=== PATIENT | female | born 1960 | race Caucasian/White ===

== ENCOUNTER → 2016-10-29 | Outpatient (CLI) | payer OTHER ==
[2016-10-29 17:25] LABS: ABSOLUTE EOSINOPHILS # (AUTO) 0.1 10^3/uL (0.0-0.6); ABSOLUTE LYMPHOCYTES (AUTO) 1.8 10^3/uL (0.5-4.7); ABSOLUTE NEUT (AUTO) 7.3 10^3/uL (1.7-8.2); BASOPHILS % (AUTO) 0.2 % (0-2); EOSINOPHILS % (AUTO) 0.8 % (0-6); HEMATOCRIT 44.8 % (36.0-47.0); HEMOGLOBIN 14.6 g/dL (12.0-15.5); LYMPHOCYTES % (AUTO) 17.2 % (13-45); MEAN CORPUSCULAR HGB CONC 32.6 g/dL (32.0-36.0); MEAN CORPUSCULAR VOLUME 95 fl (80-97); RED BLOOD COUNT 4.72 10^6/uL (3.72-5.28); RED CELL DISTRIBUTION WIDTH 14.2 % (11.5-14.0); SEGMENTED NEUTROPHILS % (AUTO) 71.8 % (42-78); WHITE BLOOD COUNT 10.2 10^3/uL (4.0-10.5)
== END ==
LOC: OD 15:47
PROVIDERS: ATTEND Specialist
DX: K51.80 Other ulcerative colitis without complications (principal)
CPT/HCPCS: 36415; 85025; 86140; 87045; 87205; 87493

== ENCOUNTER 2017-10-27 12:11 | Inpatient (IN) | payer OTHER ==
--- NOTE | 2017-10-27 13:54 | RADIOLOGY REPORT (SQ) ---
EXAM DESCRIPTION: CHEST PA/LAT COMPLETED DATE/TIME: 10/27/2017 1:29 pm REASON FOR STUDY: cough COMPARISON: 02/10/2015 EXAM PARAMETERS: NUMBER OF VIEWS: two views TECHNIQUE: Digital Frontal and Lateral radiographic views of the chest acquired. RADIATION DOSE: NA LIMITATIONS: none FINDINGS: LUNGS AND PLEURA: No opacities, masses or pneumothorax. No pleural effusion. MEDIASTINUM AND HILAR STRUCTURES: No masses or contour abnormalities. HEART AND VASCULAR STRUCTURES: Heart normal size. No evidence for failure. BONES: No acute findings. HARDWARE: None in the chest. OTHER: No other significant finding. IMPRESSION: NO SIGNIFICANT RADIOGRAPHIC FINDING IN THE CHEST. TECHNICAL DOCUMENTATION: JOB ID: [id number] [employer]- All Rights Reserved
[2017-10-27 14:20] LABS: HEMATOCRIT 41.8 % (36.0-47.0); HEMOGLOBIN 13.8 g/dL (12.0-15.5); MEAN CORPUSCULAR HEMOGLOBIN 31.1 pg (27.0-33.4); MEAN CORPUSCULAR VOLUME 94 fl (80-97); PLATELET COUNT 162 10^3/uL (150-450); RED BLOOD COUNT 4.44 10^6/uL (3.72-5.28); RED CELL DISTRIBUTION WIDTH 13.4 % (11.5-14.0); WHITE BLOOD COUNT 12.4 10^3/uL (4.0-10.5)
[2017-10-27 14:28] LABS: APPEARANCE,URINE TURBID; BILIRUBIN,URINE NEGATIVE (NEGATIVE); GLUCOSE, URINE NEGATIVE (NEGATIVE); KETONES,URINE 20 mg/dL (NEGATIVE); LEUKOCYTE ESTERASE,URINE MODERATE (NEGATIVE); NITRITE,URINE POSITIVE (NEGATIVE); PROTEIN,URINE 100 mg/dL (NEGATIVE); UROBILINOGEN,URINE NEGATIVE mg/dL (<2.0)
[2017-10-27 14:31] LABS: COLOR,URINE YELLOW
[2017-10-27 14:43] LABS: ALANINE AMINOTRANSFERASE 61 U/L (9-52); ALBUMIN 3.6 g/dL (3.5-5.0); ALKALINE PHOSPHATASE 76 U/L (38-126); ANION GAP 12 (5-19); ASPARTATE AMINO TRANSFERASE 64 U/L (14-36); BILIRUBIN,DIRECT 0.5 mg/dL (0.0-0.4); BILIRUBIN,TOTAL 0.8 mg/dL (0.2-1.3); BLOOD UREA NITROGEN 27 mg/dL (7-20); CALCIUM 8.9 mg/dL (8.4-10.2); CARBON DIOXIDE 26 mmol/L (22-30); CHLORIDE 99 mmol/L (98-107); GLUCOSE 137 mg/dL (75-110); POTASSIUM 3.9 mmol/L (3.6-5.0); SODIUM 137.1 mmol/L (137-145); TOTAL PROTEIN 6.4 g/dL (6.3-8.2)
[2017-10-27 14:46] LABS: ABSOLUTE NEUTROPHILS# (MANUAL) 11.4 10^3/uL (1.7-8.2); BASOPHILS % (MANUAL) 0 % (0-2); EOSINOPHILS % (MANUAL) 0 % (0-6); LYMPHOCYTES % (MANUAL) 0 % (13-45); MONOCYTES % (MANUAL) 8 % (3-13); SEGMENTED NEUTROPHILS % (MAN) 92 % (42-78); TOTAL CELLS COUNTED 100
[2017-10-27 14:48] LABS: PLATELET COMMENT ADEQUATE; RBC MORPHOLOGY COMMENT NORMO-CYTIC/CHROMIC; TOXIC GRANULATION SLIGHT
[2017-10-27] MEDS ORDERED: CEFTRIAXONE 1 GM/D5W RTU 1 GM/50 ML RTUPB IV ONE (15:25)
[2017-10-27] MEDS ORDERED: CEFTRIAXONE SODIUM 1,000 MG in NORMAL SALINE 50 ML IV ONE (18:00)
[2017-10-27] MEDS ORDERED: NORMAL SALINE 1000 ML 1,000 ML IV ONE (20:09)
--- NOTE | 2017-10-27 20:16 | ER Document Report ---
ED Flu Like - General Chief Complaint: Flu Symptoms Stated Complaint: FLU SYMPTOMS Time Seen by Provider: 10/27/17 12:49 Mode of Arrival: Ambulatory Information source: Patient Notes: Patient arrives complains of feeling very weak and fatigued. She has had a mild cough. Some nausea and vomiting. She also states that she is unable to tolerate any significant p.o. intake. She has no appetite. The symptoms are severe. Nothing makes them better or worse. They are constant. She states she is on Humira. She states recently she had a urinary tract infection about 3 months ago and the only way it could be cured was to stop her Humira. No known radiation of the symptoms. TRAVEL OUTSIDE OF THE [place] IN LAST 30 DAYS: No - Related Data Allergies/Adverse Reactions: No Known Allergies Allergy (Verified 05/30/16 08:00) Past Medical History - General Information source: Patient - Social History Smoking Status: Unknown if Ever Smoked Frequency of alcohol use: None Drug Abuse: None Family History: Reviewed & Not Pertinent Patient has suicidal ideation: No Patient has homicidal ideation: No - Past Medical History Cardiac Medical History: Reports: Hx Hypertension - meds x 15 years Denies: Hx Atrial Fibrillation, Hx Congestive Heart Failure, Hx Coronary Artery Disease, Hx Heart Attack, Hx Hypercholesterolemia, Hx Peripheral Vascular Disease, Hx Pulmonary Embolism, Hx Heart Murmur Pulmonary Medical History: Reports: Hx Sleep Apnea - sleep study approx 3 years ago,"borderline" denies CPAP requirement Denies: Hx Asthma, Hx Bronchitis, Hx COPD, Hx Pneumonia, Hx Respiratory Failure, Hx Tuberculosis Neurological Medical History: Denies: Hx Cerebrovascular Accident, Hx Seizures Renal/ Medical History: Reports: Hx Ovarian Cysts. Denies: Hx Peritoneal Dialysis, Hx Pelvic Inflammatory Disease Malignancy Medical History: Denies: Hx Breast Cancer, Hx Cervical Cancer, Hx Leukemia, Hx Lung Cancer, Hx Ovarian Cancer GI Medical History: Reports: Hx Gastroesophageal Reflux Disease - Zantac PRN. Denies: Hx Crohn's Disease, Hx Hiatal Hernia, Hx Irritable Bowel, Hx Liver Failure, Hx Pancreatitis, Hx Ulcer Musculoskeltal Medical History: Reports Hx Arthritis - REITERS SYNDROME, Denies Hx Fibromyalgia, Denies Hx Muscular Dystrophy Traumatic Medical History: Reports: Hx Fractures - RT clavicle as infant Infectious Medical History: Denies: Hx HIV Past Surgical History: Reports: Hx Tonsillectomy - @ age 53 years old. Denies: Hx Appendectomy, Hx Bowel Surgery, Hx Section, Hx Cholecystectomy, Hx Colostomy, Hx Coronary Artery Bypass Graft, Hx Gastric Bypass Surgery, Hx Herniorrhaphy, Hx Hysterectomy, Hx Mastectomy, Hx Pacemaker, Hx Tubal Ligation - Immunizations Hx Diphtheria, Pertussis, Tetanus Vaccination: No Review of Systems - Review of Systems Constitutional: Malaise, Weakness, Recent illness Cardiovascular: denies: Chest pain, Palpitations, Heart racing Respiratory: Cough Gastrointestinal: Abdominal pain, Nausea Genitourinary: denies: Burning, Dysuria -: Yes All other systems reviewed and negative Physical Exam - Vital signs Vitals: Temp Pulse Resp BP Pulse Ox 98.3 F 87 24 H 111/61 91 L 10/27/17 12:32 10/27/17 12:32 10/27/17 12:32 10/27/17 12:32 10/27/17 12:32 Interpretation: Normal - General General appearance: Appears well, Alert In distress: None - HEENT Head: Normocephalic, Atraumatic Eyes: Normal Pupils: PERRL - Respiratory Respiratory status: No respiratory distress Chest status: Nontender Breath sounds: Normal Chest palpation: Normal - Cardiovascular Rhythm: Regular Heart sounds: Normal auscultation Murmur: No - Abdominal Inspection: Normal Distension: No distension Bowel sounds: Normal Tenderness: Nontender Organomegaly: No organomegaly - Back Back: Normal, Nontender - Extremities General upper extremity: Normal inspection, Nontender, Normal color, Normal ROM , Normal temperature General lower extremity: Normal inspection, Nontender, Normal color, Normal ROM , Normal temperature, Normal weight bearing. No: Raul's sign - Neurological Neuro grossly intact: Yes Cognition: Normal Orientation: AAOx4 [place] Coma Scale Eye Opening: Spontaneous [place] Coma Scale Verbal: Oriented [place] Coma Scale Motor: Obeys Commands [place] Coma Scale Total: 15 Speech: Normal Motor strength normal: LUE, RUE, LLE, RLE Sensory: Normal - Psychological Associated symptoms: Normal affect, Normal mood - Skin Skin Temperature: Warm Skin Moisture: Dry Skin Color: Normal Course - Re-evaluation Re-evalutation: 10/27/17 20:15 After fluids, observation, and antibiotics, patient states that she feels no different and feels very weak and fatigued. She states that she feels uncomfortable being discharged home. - Vital Signs Vital signs: Temp Pulse Resp BP Pulse Ox 98.7 F 83 16 108/67 95 10/27/17 20:09 10/27/17 20:09 10/27/17 20:09 10/27/17 20:09 10/27/17 20:09 - Laboratory Result Diagrams: 10/27/17 13:45 10/27/17 13:45 Laboratory results interpreted by me: 10/27/17 10/27/17 10/27/17 13:45 13:45 13:45 WBC 12.4 H Seg Neuts % (Manual) 92 H Lymphocytes % (Manual) 0 L Abs Neuts (Manual) 11.4 H Abs Lymphs (Manual) 0.0 L BUN 27 H Creatinine 1.31 H Est GFR ( Amer) 50 L Est GFR (Non-Af Amer) 42 L Glucose 137 H Direct Bilirubin 0.5 H AST 64 H ALT 61 H Urine Protein 100 H Urine Ketones 20 H Urine Blood SMALL H Urine Nitrite POSITIVE H Ur Leukocyte Esterase MODERATE H Discharge - Discharge Clinical Impression: Weakness Urinary tract infection Qualifiers: Urinary tract infection type: site unspecified Hematuria presence: without hematuria Qualified Code(s): N39.0 - Urinary tract infection, site not specified Condition: Stable Disposition: ADMITTED OBSERVATION Admitting Provider: Hospitalist Unit Admitted: Medical Floor
[2017-10-27] MEDS ORDERED: ACETAMINOPHEN 325 MG TABLET PO PRN (20:18)
[2017-10-27] MEDS ORDERED: ONDANSETRON HCL INJ/PF 4 MG/2 ML SDV IV PRN (20:18)
[2017-10-27] MEDS ORDERED: NORMAL SALINE 1000 ML 1,000 ML IV PRN (20:19)
[2017-10-27] MEDS ORDERED: NITROGLYCERIN 2% OINTMENT 1 GM PACKET TP PRN (20:54)
[2017-10-27] MEDS ORDERED: LIDOCAINE 2% JELLY 30 ML TUBE TOP PRN (20:56)
[2017-10-27] MEDS ORDERED: OSELTAMIVIR PHOSPHATE 75 MG CAPSULE PO ONE (21:07)
[2017-10-27] MEDS ORDERED: ATENOLOL 50 MG TABLET PO ONE (21:30)
--- NOTE | 2017-10-27 21:33 | PDOC H&P ---
History of Present Illness Admission Date/PCP: Dulce Maria Zee MD Patient complains of: Not feeling well since Friday History of Present Illness: JENNIFER BRANCH is a 57 year old female with a history of reactive arthritis on Humira, colitis on Humira, Raynaud's, DVT,hypertension, IBS and GERD presenting with a complaint of not feeling well since Friday. Patient states she felt very weak and fatigued. She was nauseated but did not vomit. Patient became incontinent of her urine and did experience a little bit of burning. Patient developed diarrhea but that has since resolved. Patient has not been eating or drinking for the past 4 days. Patient does not have appetite. A few months ago patient states she had a severe UTI for which she was taken off of the Humira and treated. Patient states her urine was tea colored at that time. Patient states she has not had any fevers but tend not to have fevers. Patient states she feels worse than she did with her previous UTI and is concerned he may have the flu. In the ED patient was noted to have a white count of 12.3. Patient creatinine was 1.31 her previous was 0.80. Patient BUN was elevated. Patient UA showed protein ketones nitrites leukocytes esterase which is concerning for UTI. Patient was given IV fluids and ceftriaxone. Hospitalist was called to admit patient for UTI, acute renal failure and dehydration. Past Medical History Cardiac Medical History: Reports: Hypertension - meds x 15 years Denies: Atrial Fibrillation, Congestive Heart Failure, Coronary Artery Disease, Myocardial Infarction, Hyperlipidema, Peripheral Vascular Disease, Pulmonary Embolism, Heart Murmur Pulmonary Medical History: Reports: Sleep Apnea - sleep study approx 3 years ago ,"borderline" denies CPAP requirement Denies: Asthma, Bronchitis, Chronic Obstructive Pulmonary Disease (COPD), Pneumonia, Respiratory Failure, Tuberculosis Neurological Medical History: Denies: Seizures Malignancy Medical History: Denies: Breast Cancer, Cervical Cancer, Leukemia, Lung Cancer, Ovarian Cancer GI Medical History: Reports: Gastroesophageal Reflux Disease - Zantac PRN, Other - Colitis IBS Denies: Crohn's Disease, Hiatal Hernia Musculoskeltal Medical History: Reports: Arthritis - REITERS SYNDROME Denies: Fibromyalgia Skin Medical History: Reports: Other - Raynauds ulceration of the fingertips Hematology: Reports: Anemia - heavy bleeding x 6 months (prior to menopause) Denies: Hemophilia, Sickle Cell Disease Infectious Medical History: Denies: HIV Past Surgical History Past Surgical History: Reports: Orthopedic Surgery - Knee surgery 2 years ago, Tonsillectomy - @ age 53 years old Denies: Amputation, Appendectomy, Section, Cholecystectomy, Colostomy, Coronary Artery Bypass Graft, Gastric Bypass Surgery, Herniorrhaphy, Hysterectomy, Mastectomy, Pacemaker, Tubal Ligation Social History Smoking Status: Never Smoker Hx Recreational Drug Use: No Hx Prescription Drug Abuse: No - Advance Directive Resuscitation Status: Full Code Family History Family History: Hypertension Parental Family History Reviewed: No Children Family History Reviewed: No Sibling(s) Family History Reviewed.: No Medication/Allergy Allergies/Adverse Reactions: No Known Allergies Allergy (Verified 05/30/16 08:00) Review of Systems Constitutional: PRESENT: anorexia, fatigue, weakness. ABSENT: chills, fever(s) , headache(s), weight gain, weight loss Eyes: ABSENT: visual disturbances Ears: ABSENT: hearing changes Cardiovascular: ABSENT: chest pain, dyspnea on exertion, edema, orthropnea, palpitations Respiratory: ABSENT: cough, hemoptysis Gastrointestinal: ABSENT: abdominal pain, constipation, diarrhea, hematemesis, hematochezia, nausea, vomiting Genitourinary: PRESENT: dysuria, other - Incontinence. ABSENT: hematuria Musculoskeletal: ABSENT: joint swelling Integumentary: ABSENT: rash, wounds Neurological: ABSENT: abnormal gait, abnormal speech, confusion, dizziness, focal weakness, syncope Psychiatric: ABSENT: anxiety, depression, homidical ideation, suicidal ideation Endocrine: ABSENT: cold intolerance, heat intolerance, polydipsia, polyuria Hematologic/Lymphatic: ABSENT: easy bleeding, easy bruising Physical Exam Vital Signs: Temp Pulse Resp BP Pulse Ox 98.7 F 83 16 108/67 95 10/27/17 20:09 10/27/17 20:09 10/27/17 20:09 10/27/17 20:09 10/27/17 20:09 General appearance: PRESENT: no acute distress, obese, well-nourished Head exam: PRESENT: normocephalic Eye exam: PRESENT: EOMI. ABSENT: scleral icterus Ear exam: PRESENT: normal external ear exam Mouth exam: PRESENT: moist Neck exam: ABSENT: carotid bruit, JVD, lymphadenopathy, thyromegaly Respiratory exam: PRESENT: clear to auscultation angely. ABSENT: rales, rhonchi, wheezes Cardiovascular exam: PRESENT: RRR. ABSENT: diastolic murmur, rubs, systolic murmur Pulses: PRESENT: normal dorsalis pedis pul Vascular exam: PRESENT: normal capillary refill GI/Abdominal exam: PRESENT: normal bowel sounds, soft. ABSENT: distended, guarding, mass, organolmegaly, rebound, tenderness Rectal exam: PRESENT: deferred Extremities exam: PRESENT: full ROM. ABSENT: calf tenderness, clubbing, pedal edema Neurological exam: PRESENT: alert, awake, oriented to person, oriented to place , oriented to time, oriented to situation, CN II-XII grossly intact. ABSENT: motor sensory deficit Psychiatric exam: PRESENT: appropriate affect, normal mood. ABSENT: homicidal ideation, suicidal ideation Skin exam: PRESENT: dry, intact, warm, other - Ulcerations on the tip of the right ring and pointer finger in the left ring finger. ABSENT: cyanosis, rash Results Laboratory Results: 10/27/17 13:45 10/27/17 13:45 10/27/17 10/27/17 10/27/17 13:45 13:45 13:45 WBC 12.4 H RBC 4.44 Hgb 13.8 Hct 41.8 MCV 94 MCH 31.1 MCHC 33.0 RDW 13.4 Plt Count 162 Seg Neutrophils % Not Reportable Lymphocytes % Not Reportable Monocytes % Not Reportable Eosinophils % Not Reportable Basophils % Not Reportable Absolute Neutrophils Not Reportable Absolute Lymphocytes Not Reportable Absolute Monocytes Not Reportable Absolute Eosinophils Not Reportable Absolute Basophils Not Reportable Sodium 137.1 Potassium 3.9 Chloride 99 Carbon Dioxide 26 Anion Gap 12 BUN 27 H Creatinine 1.31 H Est GFR ( Amer) 50 L Est GFR (Non-Af Amer) 42 L Glucose 137 H Calcium 8.9 Total Bilirubin 0.8 AST 64 H ALT 61 H Alkaline Phosphatase 76 Total Protein 6.4 Albumin 3.6 Urine Color YELLOW Urine Appearance TURBID Urine pH 6.0 Ur Specific [place] 1.010 Urine Protein 100 H Urine Glucose (UA) NEGATIVE Urine Ketones 20 H Urine Blood SMALL H Urine Nitrite POSITIVE H Ur Leukocyte Esterase MODERATE H Urine WBC (Auto) >182 Urine RBC (Auto) 25 Impressions: Chest X-Ray 10/27/17 12:51 IMPRESSION: NO SIGNIFICANT RADIOGRAPHIC FINDING IN THE CHEST. Assessment & Plan - Diagnosis (1) Urinary tract infection Qualifiers: Urinary tract infection type: site unspecified Hematuria presence: without hematuria Qualified Code(s): N39.0 - Urinary tract infection, site not specified Is this a current diagnosis for this admission?: Yes Plan: UA concerning for UTI with WBCs nitrites leukocytes esterase. Patient started on ceftriaxone. Urine culture sent and pending. Will adjust antibiotics accordingly. (2) Acute renal failure Is this a current diagnosis for this admission?: Yes Plan: No acute renal failure. Patient creatinine 1.31 with a elevated BUN of 27. Patient previous creatinine was 0.80 and 2016. This is most likely due to dehydration as patient has not eaten or drank much over the last 4 days and also had a bout of diarrhea. Patient given normal saline bolus in the ED. Will continue normal saline at 100 cc an hour. Will follow up renal function. Will avoid nephrotoxins. Patient is on NSAIDs at home for her reactive arthritis. Medication is being held. (3) Dehydration Is this a current diagnosis for this admission?: Yes Plan: Dehydration secondary to acute illness. Patient has had decreased p.o. intake and also had a bout of diarrhea. Patient given a fluid bolus and is now started on normal saline going at 100 cc an hour. (4) Immunocompromised Is this a current diagnosis for this admission?: Yes Plan: Patient is on Humira for her colitis and reactive arthritis. Despite patient having a UTI, being that patient is immunosuppressive it is point to complete a workup for sepsis. Blood cultures being ordered, urine is being sent for culture and chest x-ray is negative. Patient currently on ceftriaxone. Patient reports that her previous UTI did not cause her to feel so drained and ill is concern for concomitant viral infection. With that being said patient started on Tamiflu. (5) Raynaud's disease Qualifiers: Raynaud?s-associated gangrene presence: without gangrene Qualified Code(s) : I73.00 - Raynaud's syndrome without gangrene Is this a current diagnosis for this admission?: Yes Plan: She has ulcerations of her fingertips. Patient on Norvasc 2.5, Nitro-Bid ointment for the tips of her fingers in addition to lidocaine. Will continue this in the hospital. (6) Reactive arthritis Is this a current diagnosis for this admission?: Yes Plan: Patient is on Humira 40 mg injection every 2 weeks. Patient also on sulfazine EC 500 mg tablets. (7) Colitis Is this a current diagnosis for this admission?: Yes Plan: Refer to management under reactive arthritis. - Time Time Spent: 30 to 50 Minutes Anticipated discharge: Home Within: within 48 hours - Inpatient Certification Medical Necessity: Significant Comorbidiites Make Outpatient Treatment Too Risky , Need Close Monitoring Due to Risk of Patient Decompensation, Need For IV Fluids, Need for IV Antibiotics
[2017-10-28] MEDS ORDERED: LIDOCAINE 2% JELLY 30 ML TUBE ONE (01:12)
[2017-10-28] MEDS ORDERED: ATENOLOL 50 MG TABLET PO ONE (01:30)
[2017-10-28] MEDS ORDERED: OSELTAMIVIR PHOSPHATE 75 MG CAPSULE PO ONE (01:30)
[2017-10-28] MEDS: LANSOPRAZOLE 30 MG TAB.RAP.DR PO SCH (07:41)
[2017-10-28 08:10] LABS: ABSOLUTE LYMPHOCYTES (AUTO) 0.9 10^3/uL (0.5-4.7); ABSOLUTE NEUT (AUTO) 9.8 10^3/uL (1.7-8.2); BASOPHILS % (AUTO) 0.3 % (0-2); EOSINOPHILS % (AUTO) 0.1 % (0-6); HEMATOCRIT 39.5 % (36.0-47.0); LYMPHOCYTES % (AUTO) 7.3 % (13-45); MEAN CORPUSCULAR HEMOGLOBIN 31.1 pg (27.0-33.4); MEAN CORPUSCULAR HGB CONC 32.9 g/dL (32.0-36.0); MEAN CORPUSCULAR VOLUME 94 fl (80-97); MONOCYTES % (AUTO) 15.4 % (3-13); PLATELET COUNT 157 10^3/uL (150-450); RED BLOOD COUNT 4.19 10^6/uL (3.72-5.28); RED CELL DISTRIBUTION WIDTH 12.9 % (11.5-14.0); SEGMENTED NEUTROPHILS % (AUTO) 76.9 % (42-78); TOTAL CELLS COUNTED % (AUTO) 100 %; WHITE BLOOD COUNT 12.8 10^3/uL (4.0-10.5)
[2017-10-28 08:35] LABS: ANION GAP 13 (5-19); BLOOD UREA NITROGEN 30 mg/dL (7-20); CALCIUM 9.2 mg/dL (8.4-10.2); CARBON DIOXIDE 25 mmol/L (22-30); CHLORIDE 103 mmol/L (98-107); GLUCOSE 105 mg/dL (75-110); POTASSIUM 3.8 mmol/L (3.6-5.0); SODIUM 141.4 mmol/L (137-145)
[2017-10-28] MEDS: DICYCLOMINE HCL 20 MG TABLET PO SCH ×2 (09:19→20:44)
[2017-10-28] MEDS ORDERED: AMLODIPINE BESYLATE 2.5 MG TABLET PO SCH (10:00)
[2017-10-28] MEDS ORDERED: SULFASALAZINE 500 MG TABLET.DR PO SCH ×2 (10:00→22:00)
[2017-10-28] MEDS ORDERED: OSELTAMIVIR PHOSPHATE 75 MG CAPSULE PO SCH (10:00)
[2017-10-28] MEDS ORDERED: OXYCODONE-ACETAMINOPHEN 5-325 MG TABLET PO PRN (12:33)
[2017-10-28] MEDS ORDERED: NORMAL SALINE 1000 ML 1,000 ML IV PRN (12:38)
--- NOTE | 2017-10-28 12:57 | PDOC PROGRESS REPORT ---
Subjective Progress Note for:: 10/28/17 Subjective:: Patient relates that she feels better and thinks that she can go home since can do better at home. Patient made aware of her still being dehydrated and needed a prolonged IV antibiotic therapy. Patient then agreed to stay Review of systems All organ systems evaluated and negative except as in subjective All significant diagnostics and laboratories have been reviewed Reason For Visit: UTI,ARF,DEHYDRATION Physical Exam Vital Signs: Temp Pulse Resp BP Pulse Ox 98.7 F 83 16 128/76 H 98 10/27/17 20:09 10/27/17 20:09 10/27/17 20:09 10/28/17 07:01 10/28/17 07:26 Intake & Output 10/27/17 10/28/17 10/29/17 06:59 06:59 06:59 Weight 131 kg General appearance: PRESENT: cooperative, morbidly obese Head exam: PRESENT: atraumatic, normocephalic Eye exam: PRESENT: conjunctiva pink, EOMI, PERRLA Ear exam: PRESENT: normal external ear exam Mouth exam: PRESENT: moist Neck exam: PRESENT: full ROM. ABSENT: JVD, lymphadenopathy, tenderness Respiratory exam: PRESENT: clear to auscultation angely Cardiovascular exam: PRESENT: RRR. ABSENT: diastolic murmur, systolic murmur Vascular exam: PRESENT: normal capillary refill GI/Abdominal exam: PRESENT: normal bowel sounds, soft. ABSENT: tenderness Extremities exam: PRESENT: full ROM. ABSENT: tenderness Musculoskeletal exam: PRESENT: ambulatory Neurological exam: PRESENT: alert, awake, oriented to person, oriented to place , oriented to time, oriented to situation, CN II-XII grossly intact Psychiatric exam: PRESENT: appropriate affect, normal mood Skin exam: PRESENT: intact, normal color Results Laboratory Results: 10/28/17 07:27 10/28/17 07:27 10/28/17 10/28/17 07:27 07:27 WBC 12.8 H RBC 4.19 Hgb 13.0 Hct 39.5 MCV 94 MCH 31.1 MCHC 32.9 RDW 12.9 Plt Count 157 Seg Neutrophils % 76.9 Lymphocytes % 7.3 L Monocytes % 15.4 H Eosinophils % 0.1 Basophils % 0.3 Absolute Neutrophils 9.8 H Absolute Lymphocytes 0.9 Absolute Monocytes 2.0 H Absolute Eosinophils 0.0 Absolute Basophils 0.0 Sodium 141.4 Potassium 3.8 Chloride 103 Carbon Dioxide 25 Anion Gap 13 BUN 30 H Creatinine 1.16 Est GFR ( Amer) 58 L Est GFR (Non-Af Amer) 48 L Glucose 105 Calcium 9.2 Magnesium 2.0 Impressions: Chest X-Ray 10/27/17 12:51 IMPRESSION: NO SIGNIFICANT RADIOGRAPHIC FINDING IN THE CHEST. Assessment & Plan - Diagnosis (1) Acute renal failure Qualifiers: Acute renal failure type: unspecified Qualified Code(s): N17.9 - Acute kidney failure, unspecified Is this a current diagnosis for this admission?: Yes Plan: We will continue with IV fluids and will trend renal (2) Colitis Is this a current diagnosis for this admission?: Yes Plan: Appears to be stable (3) Dehydration Is this a current diagnosis for this admission?: Yes Plan: Continue IV fluids and contributing to acute kidney injury. To trend renal (4) Immunocompromised Is this a current diagnosis for this admission?: Yes Plan: Overall medical condition can predispose patient to infection. (5) Urinary tract infection Qualifiers: Urinary tract infection type: site unspecified Hematuria presence: without hematuria Qualified Code(s): N39.0 - Urinary tract infection, site not specified Is this a current diagnosis for this admission?: Yes Plan: Continue present management - Time Time Spent with patient: 15-24 minutes Medications reviewed and adjusted accordingly: Yes Anticipated discharge: Home Within: within 48 hours - Inpatient Certification Based on my medical assessment, after consideration of the patient's comorbidities, presenting symptoms, or acuity I expect that the services needed warrant INPATIENT care.: Yes I certify that my determination is in accordance with my understanding of Medicare's requirements for reasonable and necessary INPATIENT services [42 CFR 412.3e].: Yes Medical Necessity: Need Close Monitoring Due to Risk of Patient Decompensation, Need For IV Fluids, Need for IV Antibiotics
[2017-10-28] MEDS ORDERED: LORAZEPAM 1 MG TABLET PO ONE (15:00)
[2017-10-28] MEDS ORDERED: (PENDING PHARMACY ID) (Atenolol [Atenolol] 100 MG) PO SCH (18:00)
[2017-10-28] MEDS ORDERED: DICYCLOMINE HCL 20 MG TABLET PO SCH (18:00)
[2017-10-28] MEDS ORDERED: ATENOLOL 50 MG TABLET PO SCH (18:00)
[2017-10-28] MEDS ORDERED: CLOPIDOGREL BISULFATE 75 MG TABLET PO SCH (18:00)
[2017-10-28] MEDS ORDERED: CEFTRIAXONE 2 GM/D5W RTU 2 GM/50 ML RTUPB IV SCH (18:00)
[2017-10-28] MEDS ORDERED: LOPERAMIDE HCL 2 MG CAPSULE PO PRN (18:14)
[2017-10-28] MEDS ORDERED: PROMETHAZINE HCL 25 MG TABLET PO PRN (18:16)
[2017-10-28] MEDS: BENZONATATE 100 MG CAPSULE PO PRN (20:44)
[2017-10-28] MEDS: METRONIDAZOLE 500 MG/NS RTU 100 ML IV SCH (21:59)
[2017-10-28] MEDS ORDERED: CELECOXIB 200 MG CAPSULE PO SCH (22:00)
[2017-10-28] MEDS ORDERED: ZOLPIDEM TARTRATE 5 MG TABLET PO SCH (22:00)
[2017-10-29 05:06] LABS: ABSOLUTE LYMPHOCYTES (AUTO) 0.8 10^3/uL (0.5-4.7); ABSOLUTE MONOCYTES (AUTO) 1.6 10^3/uL (0.1-1.4); ABSOLUTE NEUT (AUTO) 8.3 10^3/uL (1.7-8.2); BASOPHILS % (AUTO) 0.1 % (0-2); EOSINOPHILS % (AUTO) 0.1 % (0-6); HEMATOCRIT 40.4 % (36.0-47.0); HEMOGLOBIN 13.3 g/dL (12.0-15.5); LYMPHOCYTES % (AUTO) 7.9 % (13-45); MEAN CORPUSCULAR HEMOGLOBIN 31.2 pg (27.0-33.4); MEAN CORPUSCULAR HGB CONC 32.9 g/dL (32.0-36.0); MEAN CORPUSCULAR VOLUME 95 fl (80-97); MONOCYTES % (AUTO) 14.4 % (3-13); PLATELET COUNT 199 10^3/uL (150-450); RED BLOOD COUNT 4.26 10^6/uL (3.72-5.28); RED CELL DISTRIBUTION WIDTH 13.3 % (11.5-14.0); SEGMENTED NEUTROPHILS % (AUTO) 77.5 % (42-78); TOTAL CELLS COUNTED % (AUTO) 100 %; WHITE BLOOD COUNT 10.7 10^3/uL (4.0-10.5)
[2017-10-29] MEDS: LANSOPRAZOLE 30 MG TAB.RAP.DR PO SCH (05:15)
[2017-10-29] MEDS: METRONIDAZOLE 500 MG/NS RTU 100 ML IV SCH (05:15)
[2017-10-29] MEDS: BENZONATATE 100 MG CAPSULE PO PRN (05:25)
[2017-10-29 05:27] LABS: ANION GAP 11 (5-19); BLOOD UREA NITROGEN 21 mg/dL (7-20); CALCIUM 9.2 mg/dL (8.4-10.2); CARBON DIOXIDE 27 mmol/L (22-30); CHLORIDE 106 mmol/L (98-107); GLUCOSE 109 mg/dL (75-110); POTASSIUM 3.8 mmol/L (3.6-5.0); SODIUM 144.3 mmol/L (137-145)
[2017-10-29 09:33] VITALS: BP 126/72
[2017-10-29] MEDS ORDERED: LACTOBACILLUS ACIDOPHILUS 250 MG TAB PO SCH (10:00)
[2017-10-29] MEDS ORDERED: (PENDING PHARMACY ID) (Atenolol [Tenormin 100 Mg Tablet] 100 MG) PO SCH (10:00)
--- NOTE | 2017-10-29 18:42 | PDOC DISCHARGE SUMMARY ---
General - Admit/Disc Date/PCP Admission Date/Primary Care Provider: 10/27/17 20:46 BELKYS DHALIWAL PA-C Discharge Date: 10/29/17 - Discharge Diagnosis (1) Urinary tract infection Is this a current diagnosis for this admission?: Yes (2) Acute renal failure Is this a current diagnosis for this admission?: Yes (3) Dehydration Is this a current diagnosis for this admission?: Yes (4) Colitis Is this a current diagnosis for this admission?: Yes (5) Immunocompromised Is this a current diagnosis for this admission?: Yes (6) Viral syndrome Is this a current diagnosis for this admission?: Yes - Additional Information Resuscitation Status: Full Code Discharge Diet: As Tolerated Discharge Activity: Activity As Tolerated Prescriptions: Benzonatate [Tessalon Perles 100 mg Capsule] 100 mg PO Q8HP PRN #20 capsule PRN Reason: Cefdinir [Omnicef 300 mg Capsule] 1 cap PO BID #14 capsule Promethazine HCl [Phenergan 25 mg Tablet] 25 mg PO Q4HP PRN #20 tablet PRN Reason: for cough and nausea/vomiting Home Medications: Adalimumab [Humira] 0.8 ml SQ Q14D 10/28/17 Amlodipine Besylate [Norvasc 2.5 mg Tablet] 2.5 mg PO DAILY 10/28/17 Atenolol [Tenormin 100 mg Tablet] 100 mg PO DAILY 10/28/17 Celecoxib [Celebrex 200 mg Capsule] 200 mg PO BID 10/28/17 Clopidogrel Bisulfate [Plavix 75 mg Tablet] 75 mg PO DAILY 10/28/17 Dicyclomine HCl [Bentyl 20 mg Tablet] 20 mg PO BID 10/28/17 Lidocaine HCl [Xylocaine 5% Ointment 35.44 gm] 1 applic TOP DAILYP PRN 10/28/17 Nitroglycerin [Nitro-Bid 2% Ointment 30 gm] 1 applic TOP PRN PRN 10/28/17 Pantoprazole Sodium [Protonix] 40 mg PO DAILY 10/28/17 Sulfasalazine [Azulfidine 500 mg Tablet.dr] 1,000 mg PO BID 10/28/17 Tramadol HCl [Ultram 50 mg Tablet] 50 mg PO Q6HP PRN 10/28/17 Benzonatate [Tessalon Perles 100 mg Capsule] 100 mg PO Q8HP PRN #20 capsule Cefdinir [Omnicef 300 mg Capsule] 1 cap PO BID #14 capsule 10/29/17 Promethazine HCl [Phenergan 25 mg Tablet] 25 mg PO Q4HP PRN #20 tablet 10/29/17 History of Present Illness History of Present Illness: JENNIFER BRANCH is a 57 year old female with a history of reactive arthritis on Humira, colitis on Humira, Raynaud's, DVT,hypertension, IBS and GERD presenting with a complaint of not feeling for 3 days. Patient stated that she felt very weak and fatigued. She was nauseated but did not vomit. Patient became incontinent of her urine and did experience a little bit of burning. Patient developed diarrhea but that has since resolved. Patient has not been eating or drinking for the past 4 days. Patient does not have appetite. A few months ago patient states she had a severe UTI for which she was taken off of the Humira and treated. Patient stated her urine was tea colored at that time. Patient stated she has not had any fevers. Patient stated that she felt worse than she did with her previous UTI and was concerned dhe may have the flu. In the ED patient was noted to have a white count of 12.3. Patient creatinine was 1.31 her previous was 0.80. Patient BUN was elevated. Patient UA showed protein ketones nitrites leukocytes esterase which was concerning for UTI. Patient was given IV fluids and ceftriaxone. Hospitalist was called to admit patient for UTI, acute renal failure and dehydration Hospital Course Hospital Course: Patient was admitted under hospitalist service. She was placed on IV fluids and IV Rocephin with further improvement within the first 24 hours of admission. Urine culture grew higher than 100,000 colonies of E. coli which was pansensitive. At the time of discharge patient was prescribed Omnicef. Patient also presented with cold like symptoms. She was discharged on antitussive medication. Since that she had achieved maximum benefit of hospitalization stay prompted to discharge. As a final note she had a mild flare of chronic medical condition, that his colitis Physical Exam Vital Signs: Temp Pulse Resp BP Pulse Ox 98.9 F 72 16 125/74 97 10/28/17 22:51 10/28/17 22:51 10/28/17 22:51 10/28/17 22:51 10/28/17 22:51 Intake & Output 10/27/17 10/28/17 10/29/17 06:59 06:59 06:59 Weight 131 kg General appearance: PRESENT: cooperative, morbidly obese Head exam: PRESENT: atraumatic, normocephalic Eye exam: PRESENT: EOMI, PERRLA Ear exam: PRESENT: normal external ear exam Mouth exam: PRESENT: moist Neck exam: PRESENT: full ROM. ABSENT: JVD, lymphadenopathy, tenderness Respiratory exam: PRESENT: clear to auscultation angely Cardiovascular exam: PRESENT: RRR. ABSENT: diastolic murmur, systolic murmur Vascular exam: PRESENT: normal capillary refill GI/Abdominal exam: PRESENT: normal bowel sounds. ABSENT: tenderness Extremities exam: PRESENT: full ROM, +1 edema Musculoskeletal exam: PRESENT: ambulatory Neurological exam: PRESENT: alert, awake, oriented to person, oriented to place , oriented to time, oriented to situation, CN II-XII grossly intact Psychiatric exam: PRESENT: appropriate affect, normal mood Skin exam: PRESENT: intact, normal color Results Laboratory Results: 10/29/17 04:40 10/29/17 04:40 10/28/17 10/28/17 10/29/17 07:27 07:27 04:40 WBC 12.8 H 10.7 H RBC 4.19 4.26 Hgb 13.0 13.3 Hct 39.5 40.4 MCV 94 95 MCH 31.1 31.2 MCHC 32.9 32.9 RDW 12.9 13.3 Plt Count 157 199 Seg Neutrophils % 76.9 77.5 Lymphocytes % 7.3 L 7.9 L Monocytes % 15.4 H 14.4 H Eosinophils % 0.1 0.1 Basophils % 0.3 0.1 Absolute Neutrophils 9.8 H 8.3 H Absolute Lymphocytes 0.9 0.8 Absolute Monocytes 2.0 H 1.6 H Absolute Eosinophils 0.0 0.0 Absolute Basophils 0.0 0.0 Sodium 141.4 Potassium 3.8 Chloride 103 Carbon Dioxide 25 Anion Gap 13 BUN 30 H Creatinine 1.16 Est GFR ( Amer) 58 L Est GFR (Non-Af Amer) 48 L Glucose 105 Calcium 9.2 Magnesium 2.0 10/29/17 04:40 WBC RBC Hgb Hct MCV MCH MCHC RDW Plt Count Seg Neutrophils % Lymphocytes % Monocytes % Eosinophils % Basophils % Absolute Neutrophils Absolute Lymphocytes Absolute Monocytes Absolute Eosinophils Absolute Basophils Sodium 144.3 Potassium 3.8 Chloride 106 Carbon Dioxide 27 Anion Gap 11 BUN 21 H Creatinine 0.91 Est GFR ( Amer) > 60 Est GFR (Non-Af Amer) > 60 Glucose 109 Calcium 9.2 Magnesium 2.0 Impressions: Chest X-Ray 10/27/17 12:51 IMPRESSION: NO SIGNIFICANT RADIOGRAPHIC FINDING IN THE CHEST. Plan Discharge Plan: Discharge home Time Spent: Less than 30 Minutes
[2017-10-30] MEDS ORDERED: ETANERCEPT 50 MG SQ SCH (20:24)
== END 2017-10-29 10:41 | disposition home or self-care (01) | DRG 683 ==
LOC: ER 12:11 → EH 20:46
PROVIDERS: ADMIT Pediatrics; ATTEND Pediatrics
DX: N17.9 Acute kidney failure, unspecified (principal); N39.0 Urinary tract infection, site not specified; M02.39 Reiter's disease, multiple sites; B34.9 Viral infection, unspecified; M19.90 Unspecified osteoarthritis, unspecified site; B96.20 Unspecified Escherichia coli [E. coli] as the cause of diseases classified elsewhere; K52.89 Other specified noninfective gastroenteritis and colitis; K21.9 Gastro-esophageal reflux disease without esophagitis; I73.00 Raynaud's syndrome without gangrene; E86.0 Dehydration; I10 Essential (primary) hypertension; Z79.899 Other long term (current) drug therapy; Z82.49 Family history of ischemic heart disease and other diseases of the circulatory system; Z86.718 Personal history of other venous thrombosis and embolism; Z92.25 Personal history of immunosuppression therapy
CPT/HCPCS: 36415; 71046; 80048; 80053; 81001; 83735; 85025; 87040; 87086; 87088; 87186; 96365; 99284; J0696; J3490; J7030

== ENCOUNTER → 2017-11-06 | Outpatient (CLI) | payer OTHER ==
[2017-11-06 10:32] LABS: ABSOLUTE EOSINOPHILS # (AUTO) 0.1 10^3/uL (0.0-0.6); ABSOLUTE LYMPHOCYTES (AUTO) 1.4 10^3/uL (0.5-4.7); ABSOLUTE MONOCYTES (AUTO) 1.3 10^3/uL (0.1-1.4); BASOPHILS % (AUTO) 0.3 % (0-2); EOSINOPHILS % (AUTO) 0.4 % (0-6); HEMATOCRIT 42.9 % (36.0-47.0); HEMOGLOBIN 14.1 g/dL (12.0-15.5); LYMPHOCYTES % (AUTO) 10.8 % (13-45); MEAN CORPUSCULAR HEMOGLOBIN 30.7 pg (27.0-33.4); MEAN CORPUSCULAR HGB CONC 32.7 g/dL (32.0-36.0); MEAN CORPUSCULAR VOLUME 94 fl (80-97); PLATELET COUNT 285 10^3/uL (150-450); RED BLOOD COUNT 4.58 10^6/uL (3.72-5.28); RED CELL DISTRIBUTION WIDTH 13.7 % (11.5-14.0); SEGMENTED NEUTROPHILS % (AUTO) 78.5 % (42-78); TOTAL CELLS COUNTED % (AUTO) 100 %; WHITE BLOOD COUNT 12.8 10^3/uL (4.0-10.5)
[2017-11-06 10:57] LABS: ALANINE AMINOTRANSFERASE 42 U/L (9-52); ALBUMIN 3.9 g/dL (3.5-5.0); ALKALINE PHOSPHATASE 61 U/L (38-126); ANION GAP 11 (5-19); ASPARTATE AMINO TRANSFERASE 23 U/L (14-36); BILIRUBIN,TOTAL 0.3 mg/dL (0.2-1.3); BLOOD UREA NITROGEN 17 mg/dL (7-20); CALCIUM 9.8 mg/dL (8.4-10.2); CARBON DIOXIDE 29 mmol/L (22-30); CHLORIDE 104 mmol/L (98-107); CHOLESTEROL 229.03 mg/dL (0-200); GLUCOSE 98 mg/dL (75-110); POTASSIUM 4.2 mmol/L (3.6-5.0); SODIUM 143.7 mmol/L (137-145); TOTAL PROTEIN 6.2 g/dL (6.3-8.2); TRIGLYCERIDES 228 mg/dL (<150)
[2017-11-06 11:08] LABS: DIRECT LDL 133 mg/dL (<100)
[2017-11-06 11:10] LABS: VLDL CHOLESTEROL 45.6 mg/dL (10-31)
== END ==
LOC: OD 09:18
PROVIDERS: ATTEND Physician Assistant
DX: I10 Essential (primary) hypertension (principal); K21.9 Gastro-esophageal reflux disease without esophagitis; N28.9 Disorder of kidney and ureter, unspecified; N30.01 Acute cystitis with hematuria
CPT/HCPCS: 36415; 80053; 80061; 83036; 85025; 87086

== ENCOUNTER 2018-11-09 05:45 | Emergency (ER) | payer OTHER ==
--- NOTE | 2018-11-09 07:38 | RADIOLOGY REPORT (SQ) ---
EXAM: CT abdomen pelvis without IV contrast CLINICAL DATA: 58-year-old female with left lower quadrant pain, rule out diverticulitis TECHNICAL DATA: Axial CT imaging of the abdomen and pelvis was performed. Sagittal and coronal reconstructed images were then performed. The CT study is performed according to ALARA (as low as reasonably achievable) or ALARA/IMAGE GENTLY, with automatic adjustment of mA and/or kV according to patient size. Performed on: 11/09/2018 at 7:00 AM Comparison: None. FINDINGS: Lung bases: There are atelectatic changes in the right middle lobe and to a lesser degree the lingula. The lung bases are otherwise grossly clear. Liver:The liver is normal in size and configuration. No focal hepatic abnormalities are appreciated on this unenhanced scan. Liver attenuation is within normal limits. Spleen:The spleen is normal is size, configuration and attenuation. No focal splenic abnormalities are appreciated on this unenhanced scan. Gallbladder and bile duct: The gallbladder is well distended and unremarkable. There is no biliary ductal dilatation. Pancreas: The pancreas is grossly normal in size and configuration. Adrenal Glands:The adrenal glands are normal in size and configuration. Kidneys:The kidneys are normal in size and configuration. There is no evidence of hydronephrosis. Are punctate bilateral nonobstructing renal calculi. No focal renal abnormalities are identified. Stomach:The stomach is grossly normal. There is no definite hiatal hernia. Bowel:The bowel gas pattern is non specific and non obstructive. There is scattered colonic diverticulosis. There is no CT evidence to suggest acute diverticulitis. Appendix: The appendix is normal. Free air:There is no evidence of free air. Free fluid: There is no evidence of free fluid. Vasculature: The aorta is normal in caliber and contour. The inferior vena cava is grossly unremarkable. Lymphadenopathy: No pathologic lymphadenopathy is identified. Bladder: The bladder is partially distended and smooth in contour. Reproductive: The uterus is grossly within normal limits. The adnexal regions are within normal limits. Bones: There are degenerative changes along the visualized thoracolumbar spine. There is a nonspecific focal area of sclerosis within the L4 vertebral body to the right of midline possibly representing a bone island. Soft tissues: No focal soft tissue abnormalities are identified. There is a small fat-containing ventral umbilical hernia. IMPRESSION: 1. No evidence of acute intra-abdominal or intrapelvic pathology.. 2. There is colonic diverticulosis without evidence of damaris diverticulitis. 3. Punctate bilateral nonobstructing renal calculi. 4. Small fat-containing ventral umbilical hernia. 5. Degenerative changes throughout the thoracolumbar spine. There is a nonspecific focal area of sclerosis along the right lateral body of L4 possibly representing a benign bone island.
[2018-11-09 07:48] LABS: APPEARANCE,URINE SLIGHTLY-CLOUDY; BILIRUBIN,URINE NEGATIVE (NEGATIVE); GLUCOSE, URINE NEGATIVE (NEGATIVE); KETONES,URINE NEGATIVE (NEGATIVE); LEUKOCYTE ESTERASE,URINE NEGATIVE (NEGATIVE); NITRITE,URINE NEGATIVE (NEGATIVE); PROTEIN,URINE NEGATIVE (NEGATIVE); URINE SPECIFIC GRAVITY 1.026; UROBILINOGEN,URINE NEGATIVE mg/dL (<2.0)
[2018-11-09 07:49] LABS: COLOR,URINE YELLOW
--- NOTE | 2018-11-09 08:29 | ER Document Report ---
ED General - General Chief Complaint: Abdominal Pain Stated Complaint: ABDOMINAL PAIN Time Seen by Provider: 11/09/18 06:49 Primary Care Provider: BELKYS DHALIWAL PA-C [Primary Care Provider] - Follow up as needed TRAVEL OUTSIDE OF THE [place] IN LAST 30 DAYS: No - HPI Notes: Patient presents to the emergency department for evaluation of abdominal pain. Is been present for the last 5 days. She states this in the left lower quadrant. It seems to be getting worse. She describes it as a sharp and stabbing pain. She has had no associated fevers or chills. No nausea or vomiting. No urinary symptom. No vaginal charge. She does note that she had decreased bowel movements, but has attributed that to a mildly diminished appetite which is been present as well. She does have history of IBS. She sees gastroenterology and has had colonoscopy in the past. - Related Data Allergies/Adverse Reactions: No Known Allergies Allergy (Verified 05/30/16 08:00) Past Medical History - General Information source: Patient - Social History Smoking Status: Never Smoker Family History: Hypertension Patient has suicidal ideation: No Patient has homicidal ideation: No - Past Medical History Cardiac Medical History: Reports: Hx Hypertension - meds x 15 years Denies: Hx Atrial Fibrillation, Hx Congestive Heart Failure, Hx Coronary Artery Disease, Hx Heart Attack, Hx Hypercholesterolemia, Hx Peripheral Vascular Disease, Hx Pulmonary Embolism, Hx Heart Murmur Pulmonary Medical History: Reports: Hx Sleep Apnea - sleep study approx 3 years ago,"borderline" denies CPAP requirement Denies: Hx Asthma, Hx Bronchitis, Hx COPD, Hx Pneumonia, Hx Respiratory Failure, Hx Tuberculosis Neurological Medical History: Denies: Hx Cerebrovascular Accident, Hx Seizures Renal/ Medical History: Reports: Hx Ovarian Cysts. Denies: Hx Peritoneal Dialysis, Hx Pelvic Inflammatory Disease Malignancy Medical History: Denies: Hx Breast Cancer, Hx Cervical Cancer, Hx Leukemia, Hx Lung Cancer, Hx Ovarian Cancer GI Medical History: Reports: Hx Gastroesophageal Reflux Disease - Zantac PRN. Denies: Hx Crohn's Disease, Hx Hiatal Hernia, Hx Irritable Bowel, Hx Liver Failure, Hx Pancreatitis, Hx Ulcer Musculoskeletal Medical History: Reports Hx Arthritis - REITERS SYNDROME, Denies Hx Fibromyalgia, Denies Hx Muscular Dystrophy Traumatic Medical History: Reports: Hx Fractures - RT clavicle as infant Infectious Medical History: Denies: Hx HIV Past Surgical History: Reports: Hx Orthopedic Surgery - Knee surgery 2 years ago, Hx Tonsillectomy - @ age 53 years old. Denies: Hx Appendectomy, Hx Bowel Surgery, Hx Section, Hx Cholecystectomy, Hx Colostomy, Hx Coronary Artery Bypass Graft, Hx Gastric Bypass Surgery, Hx Herniorrhaphy, Hx Hysterectomy, Hx Mastectomy, Hx Pacemaker, Hx Tubal Ligation - Immunizations Hx Diphtheria, Pertussis, Tetanus Vaccination: No Review of Systems - Review of Systems Constitutional: No symptoms reported EENT: No symptoms reported Cardiovascular: No symptoms reported Respiratory: No symptoms reported Gastrointestinal: See HPI Genitourinary: No symptoms reported Female Genitourinary: No symptoms reported Musculoskeletal: No symptoms reported Neurological/Psychological: No symptoms reported Physical Exam - Vital signs Vitals: Temp Pulse Resp BP Pulse Ox 98.2 F 85 16 147/76 H 97 11/09/18 05:52 11/09/18 05:52 11/09/18 05:52 11/09/18 05:52 11/09/18 05:52 Interpretation: Hypertensive - Notes Notes: Vital signs reviewed, please refer to chart. Patient is normocephalic, atraumatic. Pupils equal round, reactive to light. Neck is supple without meningismus. Heart is regular rate and rhythm. Lungs are clear to auscultation bilaterally. Abdomen is soft. Moderate amount of tenderness in the left lower quadrant without rebound or guarding. No peritoneal signs. Normoactive bowel sounds. Extremities without cyanosis, clubbing, edema. Peripheral pulses are equal. Skin is warm and dry. Patient is awake, alert, neurological exam is nonfocal. Course - Re-evaluation Re-evalutation: 11/09/18 08:27 Patient presents to the emergency department for evaluation of abdominal pain. My highest concern in this patient is for diverticulitis at this time. Laboratory visitations and imaging were ordered. She does have a known history of diverticulosis. CT scan actually revealed no apparent acute abdominal process. We did attempt to obtain blood but were unsuccessful, decision was made to cancel labs. At this point her vital signs are not remarkable. Her abdominal exam remains tender but nonsurgical. Her symptoms have been present for 5 days. She has no signs of diverticulitis or acute intra-abdominal process on CT scan. I expanded the patient that I did not have a clear etiology for her pain. I strongly recommended that she follow-up with her home care music therapist this week. Certainly if she has any worsening or new concerning symptoms, she should return immediately to the emergency department for reevaluation. - Vital Signs Vital signs: Temp Pulse Resp BP Pulse Ox 98.2 F 85 16 147/76 H 97 11/09/18 05:52 11/09/18 05:52 11/09/18 05:52 11/09/18 05:52 11/09/18 05:52 - Laboratory Laboratory results interpreted by me: 11/09/18 07:15 Urine Ascorbic Acid 40 H Discharge - Discharge Clinical Impression: Left lower quadrant abdominal pain of unknown etiology Condition: Stable Disposition: HOME, SELF-CARE Instructions: Abdominal Pain ([facility]) Additional Instructions: No clear reason was found for abdominal pain. Follow-up with your primary care physician and home care music therapist this week. If you develop worsening or new concerning symptoms of any sort, return to the emergency department for evaluation. Referrals: BELKYS DHALIWAL PA-C [Primary Care Provider] - Follow up as needed
[2018-11-09 09:00] VITALS: BP 144/65
== END 2018-11-09 08:59 | disposition home or self-care (01) ==
LOC: ER 05:45
DX: R10.32 Left lower quadrant pain (principal); I10 Essential (primary) hypertension
CPT/HCPCS: 74176; 81001; 99284

== ENCOUNTER 2018-11-11 06:41 | Emergency (ER) | payer OTHER ==
[2018-11-11] MEDS ORDERED: ONDANSETRON HCL INJ/PF 4 MG/2 ML SDV IV ONE ×2 (07:56→12:20)
--- NOTE | 2018-11-11 09:01 | ER Document Report ---
ED GI/ - General Chief Complaint: Abdominal Pain Stated Complaint: ABDOMINAL PAIN Time Seen by Provider: 11/11/18 07:36 Primary Care Provider: BELKYS DHALIWAL PA-C [Primary Care Provider] - Follow up as needed Notes: Patient is a 4-year-old female presents to the emergency department with continued and increased left lower abdominal pain. Patient states she was to this facility 2 days ago and had imaging of her abdomen. Patient states she was told that "everything was fine." Patient states they were unable to obtain blood from her because her CT imaging was negative she was discharged. Patient states she is continued with left lower abdominal pain, started with a generalized rash and continues with nausea. Patient states continued diarrhea x3 episodes this morning denying any blood. Patient states about a week and a half ago she was placed on Plavix at night and aspirin in the morning, patient is stating this is because of her Raynauds syndrome. Patient states this rash is not itchy or irritating, she would not have noticed it in the first place unless she looked at her abdomen. Past medical history: Reiters, rheumatoid arthritis, Raynaud's, hypertension, hyperlipidemia, DVT, diverticulosis Medications: Celebrex, atenolol, Norvasc, pantoprazole, tramadol, Plavix, aspirin Allergies: None Patient's denying any abdominal surgical history. TRAVEL OUTSIDE OF THE [place] IN LAST 30 DAYS: No - Related Data Allergies/Adverse Reactions: No Known Allergies Allergy (Verified 05/30/16 08:00) Past Medical History - General Information source: Patient - Social History Smoking Status: Never Smoker Family History: Hypertension Patient has suicidal ideation: No Patient has homicidal ideation: No - Past Medical History Cardiac Medical History: Reports: Hx Hypertension - meds x 15 years Denies: Hx Atrial Fibrillation, Hx Congestive Heart Failure, Hx Coronary Artery Disease, Hx Heart Attack, Hx Hypercholesterolemia, Hx Peripheral Vascular Disease, Hx Pulmonary Embolism, Hx Heart Murmur Pulmonary Medical History: Reports: Hx Sleep Apnea - sleep study approx 3 years ago,"borderline" denies CPAP requirement Denies: Hx Asthma, Hx Bronchitis, Hx COPD, Hx Pneumonia, Hx Respiratory Mark lure, Hx Tuberculosis Neurological Medical History: Denies: Hx Cerebrovascular Accident, Hx Seizures Renal/ Medical History: Reports: Hx Ovarian Cysts. Denies: Hx Peritoneal Dialysis, Hx Pelvic Inflammatory Disease Malignancy Medical History: Denies: Hx Breast Cancer, Hx Cervical Cancer, Hx Leukemia, Hx Lung Cancer, Hx Ovarian Cancer GI Medical History: Reports: Hx Gastroesophageal Reflux Disease - Zantac PRN. Denies: Hx Crohn's Disease, Hx Hiatal Hernia, Hx Irritable Bowel, Hx Liver Failure, Hx Pancreatitis, Hx Ulcer Musculoskeletal Medical History: Reports Hx Arthritis - REITERS SYNDROME, Denies Hx Fibromyalgia, Denies Hx Muscular Dystrophy Traumatic Medical History: Reports: Hx Fractures - RT clavicle as infant Infectious Medical History: Denies: Hx HIV Past Surgical History: Reports: Hx Orthopedic Surgery - Knee surgery 2 years ago, Hx Tonsillectomy - @ age 53 years old. Denies: Hx Appendectomy, Hx Bowel Surgery, Hx Section, Hx Cholecystectomy, Hx Colostomy, Hx Coronary Artery Bypass Graft, Hx Gastric Bypass Surgery, Hx Herniorrhaphy, Hx Hysterectomy, Hx Mastectomy, Hx Pacemaker, Hx Tubal Ligation - Immunizations Hx Diphtheria, Pertussis, Tetanus Vaccination: No Review of Systems - Review of Systems Constitutional: denies: Fever EENT: No symptoms reported Cardiovascular: No symptoms reported Respiratory: No symptoms reported Gastrointestinal: See HPI Genitourinary: No symptoms reported Female Genitourinary: No symptoms reported Musculoskeletal: No symptoms reported Skin: See HPI Hematologic/Lymphatic: No symptoms reported Neurological/Psychological: No symptoms reported Physical Exam - Vital signs Vitals: Temp Pulse Resp BP 97.3 F 87 20 142/53 H 11/11/18 06:52 11/11/18 06:52 11/11/18 06:52 11/11/18 06:52 - Notes Notes: GENERAL: Alert, interacts well. No acute distress. HEAD: Normocephalic, atraumatic. EYES: Pupils equal, round, and reactive to light. Extraocular movements intact. ENT: Oral mucosa moist, tongue midline. NECK: Full range of motion. Supple. Trachea midline. LUNGS: Clear to auscultation bilaterally, no wheezes, rales, or rhonchi. No respiratory distress. HEART: Regular rate and rhythm. No murmur ABDOMEN: Obese soft. Non-distended. Bowel sounds present in all 4 quadrants. No Sears sign noted, no McBurney's point tenderness. Patient has left lower abdominal pain noted. EXTREMITIES: Moves all 4 extremities spontaneously. No edema, normal radial and dorsalis pedis pulses bilaterally. No cyanosis. BACK: no cervical, thoracic, lumbar midline tenderness. No saddle anesthesia, normal distal neurovascular exam. NEUROLOGICAL: Alert and oriented x3. Normal speech. cranial nerves II through XII grossly intact PSYCH: Normal affect, normal mood. SKIN: Warm, dry, normal turgor. Deep red erythematous lesions noted patient's left lower quadrant extending onto patient's left lower back and around to patient's left lower abdomen. Some lesions appear vesicular and some appear nonblanching with no vesicles, deep purple in color. Patient states lesions are not painful upon palpation. Course - Re-evaluation Re-evalutation: 11/11/18 12:36 Patient's labs show a slight leukocytosis of 12.1, no signs of anemia patient's coags are negative ordered because some of the lesions did appear to be purpura in nature and with patient recently starting Plavix and aspirin. Patient's CMP was negative. No signs of urinary tract infection. Patient's abdominal CT shows mild colonic diverticulosis with no diverticulitis, no other acute findings. As patient has been in the emergency department her rash has Interrupted with more vesicular lesions. It is now noted that it does not cross the umbilical region it does not also across her spine. It does follow a significant dermatome. Patient states upon palpation the rash is now more painful than it was initially. With patient's workup being negative for intra- abdominal pathology patient's likely diagnosis is shingles. Rash is consistent with shingles due to the following a dermatome, being vesicular in nature. Discussed shingles diagnosis and treatment with patient at bedside, patient stable for discharge. - Vital Signs Vital signs: Temp Pulse Resp BP Pulse Ox 97.3 F 87 20 142/53 H 11/11/18 06:52 11/11/18 06:52 11/11/18 06:52 11/11/18 06:52 - Laboratory Result Diagrams: 11/11/18 09:50 11/11/18 09:50 Laboratory results interpreted by me: 11/11/18 11/11/18 11/11/18 07:47 09:50 09:50 WBC 12.1 H RDW 14.5 H Lymphocytes % (Manual) 5 L Monocytes % (Manual) 21 H Abs Neuts (Manual) 8.8 H Abs Monocytes (Manual) 2.5 H Direct Bilirubin 0.5 H Urine Ketones TRACE H Urine Blood SMALL H Discharge - Discharge Clinical Impression: Shingles outbreak Qualifiers: Herpes zoster complications: without complications Qualified Code(s): B02.9 - Zoster without complications Condition: Stable Disposition: HOME, SELF-CARE Instructions: Shingles ([facility]) Additional Instructions: As we discussed you have been seen and treated in the emergency department for a rash called shingles. I do believe this is the cause of your left lower abdominal pain. Your CT imaging and blood work reveals no signs of abnormalities. Please make sure you are taking prescription medications as prescribed and follow-up with your primary care provider in the next 24-48 hours. Please also immediately return to the emergency room for any other concerning symptoms. Prescriptions: Oxycodone HCl [Oxycodone HCl 10 MG Tablet] 1 tab PO Q6H PRN #20 tablet PRN Reason: PAIN Valacyclovir HCl [Valacyclovir] 1,000 mg PO TID 7 Days tablet Referrals: BELKYS DHALIWAL PA-C [Primary Care Provider] - Follow up as needed
[2018-11-11 09:53] LABS: APPEARANCE,URINE CLEAR; BILIRUBIN,URINE NEGATIVE (NEGATIVE); GLUCOSE, URINE NEGATIVE (NEGATIVE); KETONES,URINE TRACE mg/dL (NEGATIVE); LEUKOCYTE ESTERASE,URINE NEGATIVE (NEGATIVE); NITRITE,URINE NEGATIVE (NEGATIVE); PROTEIN,URINE NEGATIVE (NEGATIVE); URINE SPECIFIC GRAVITY 1.013; UROBILINOGEN,URINE NEGATIVE mg/dL (<2.0)
[2018-11-11 09:54] LABS: COLOR,URINE DARK YELLOW
[2018-11-11 10:16] LABS: HEMATOCRIT 42.4 % (36.0-47.0); HEMOGLOBIN 14.4 g/dL (12.0-15.5); MEAN CORPUSCULAR HEMOGLOBIN 32.6 pg (27.0-33.4); MEAN CORPUSCULAR HGB CONC 33.9 g/dL (32.0-36.0); MEAN CORPUSCULAR VOLUME 96 fl (80-97); PLATELET COUNT 185 10^3/uL (150-450); RED BLOOD COUNT 4.41 10^6/uL (3.72-5.28); RED CELL DISTRIBUTION WIDTH 14.5 % (11.5-14.0); WHITE BLOOD COUNT 12.1 10^3/uL (4.0-10.5)
[2018-11-11 10:18] LABS: INTERNATIONAL RATION (INR) 0.95; PROTHROMBIN TIME 13.2 SEC (11.4-15.4)
[2018-11-11 10:19] LABS: PARTIAL THROMBOPLASTIN TIME 26.2 SEC (23.5-35.8)
[2018-11-11] MEDS ORDERED: ONDANSETRON HCL INJ/PF 4 MG/2 ML SDV ONE (10:30)
[2018-11-11 10:46] LABS: ALANINE AMINOTRANSFERASE 27 U/L (9-52); ALBUMIN 4.2 g/dL (3.5-5.0); ALKALINE PHOSPHATASE 60 U/L (38-126); ANION GAP 11 (5-19); ASPARTATE AMINO TRANSFERASE 19 U/L (14-36); BILIRUBIN,DIRECT 0.5 mg/dL (0.0-0.4); BILIRUBIN,TOTAL 0.6 mg/dL (0.2-1.3); BLOOD UREA NITROGEN 17 mg/dL (7-20); CALCIUM 9.9 mg/dL (8.4-10.2); CARBON DIOXIDE 28 mmol/L (22-30); CHLORIDE 101 mmol/L (98-107); GLUCOSE 105 mg/dL (75-110); LIPASE 62.2 U/L (23-300); POTASSIUM 4.2 mmol/L (3.6-5.0); SODIUM 139.6 mmol/L (137-145); TOTAL PROTEIN 6.5 g/dL (6.3-8.2)
[2018-11-11 10:49] LABS: ABSOLUTE LYMPHOCYTES# (MANUAL) 0.7 10^3/uL (0.5-4.7); ABSOLUTE MONOCYTES # (MANUAL) 2.5 10^3/uL (0.1-1.4); ABSOLUTE NEUTROPHILS# (MANUAL) 8.8 10^3/uL (1.7-8.2); BASOPHILS % (MANUAL) 0 % (0-2); EOSINOPHILS % (MANUAL) 0 % (0-6); LYMPHOCYTES % (MANUAL) 5 % (13-45); MONOCYTES % (MANUAL) 21 % (3-13); PLATELET COMMENT ADEQUATE; RBC MORPHOLOGY COMMENT NORMO-CYTIC/CHROMIC; SEGMENTED NEUTROPHILS % (MAN) 73 % (42-78); TOTAL CELLS COUNTED 100
[2018-11-11] MEDS ORDERED: FENTANYL CITRATE INJ/PF 100 MCG/2 ML AMPUL IV ONE (11:08)
--- NOTE | 2018-11-11 11:56 | RADIOLOGY REPORT (SQ) ---
EXAM DESCRIPTION: CT ABD/PELVIS WITH IV ORAL COMPLETED DATE/TIME: 11/11/2018 11:01 am REASON FOR STUDY: LLQ pain COMPARISON: 11/09/2018. TECHNIQUE: CT scan of the abdomen and pelvis performed with intravenous and oral contrast using george simran scanning technique with dynamic intravenous contrast injection. Images reviewed with lung, soft t issue, and bone windows. Reconstructed coronal and sagittal MPR images reviewed. Delayed images for e valuation of the urinary system also acquired. All images stored on PACS. All CT scanners at this facility use dose modulation, iterative reconstruction, and/or weight based d osing when appropriate to reduce radiation dose to as low as reasonably achievable (ALARA). [facility]: Dose Right [facility]: CareDose [facility]: Dose Right [facility]: Teradose 4D [facility]: BioCatch CONTRAST TYPE AND DOSE: contrast/concentration: Isovue 350.00 mg/ml; Total Contrast Delivered: 100.0 ml; Total Saline Delivered: 42.0 ml RENAL FUNCTION: BUN 17 creatinine 0.8. RADIATION DOSE: CT Rad equipment meets quality standard of care and radiation dose reduction techniq ues were employed. CTDIvol: 21.1 - 21.1 mGy. DLP: 2466 mGy-cm.. LIMITATIONS: None. FINDINGS: LOWER CHEST: No significant findings. No nodules or infiltrates. LIVER: Normal size. No masses. No dilated ducts. SPLEEN: Normal size. No focal lesions. PANCREAS: No masses. No significant calcifications. No adjacent inflammation or peripancreatic fluid collections. Pancreatic duct not dilated. GALLBLADDER: No identified stones by CT criteria. No inflammatory changes to suggest cholecystitis. ADRENAL GLANDS: No significant masses or asymmetry. RIGHT KIDNEY AND URETER: No solid masses. Small calyceal calculus. Duplicated collecting system. No hydronephrosis or hydroureter. LEFT KIDNEY AND URETER: No solid masses. Small calyceal calculi. No hydronephrosis or hydroureter. AORTA AND VESSELS: No aneurysm. No dissection. Renal arteries, SMA, celiac without stenosis. RETROPERITONEUM: No retroperitoneal adenopathy, hemorrhage or masses. BOWEL AND PERITONEAL CAVITY: No obstruction. No visualized masses. No free fluid. Scattered divertic ree in the descending and sigmoid colon No inflammatory changes or thickening of bowel wall. APPENDIX: Normal. PELVIS: No significant masses. Normal bladder. No free fluid. ABDOMINAL WALL: No masses. Small fat containing umbilical hernia. BONES: No significant or acute findings. OTHER: No other significant finding. IMPRESSION: 1. MILD COLONIC DIVERTICULOSIS. NO CT FINDINGS OF ACUTE DIVERTICULITIS. 2. SMALL NONOBSTRUCTING CALYCEAL CALCULI. 3. NO OTHER SIGNIFICANT OR ACUTE FINDINGS IN THE ABDOMEN OR PELVIS. TECHNICAL DOCUMENTATION: JOB ID: [id number] Quality ID # [id number]: Final reports with documentation of one or more dose reduction techniques (e.g., Au tomated exposure control, adjustment of the mA and/or kV according to patient size, use of iterative reconstruction technique) 2010 [employer]- All Rights Reserved Reading location - IP/workstation name: [email or web address]
[2018-11-11] MEDS ORDERED: MORPHINE SULFATE 10 MG/ML INJ IV ONE (12:20)
[2018-11-11 12:58] VITALS: BP 128/67
== END 2018-11-11 12:58 | disposition home or self-care (01) ==
LOC: ER 06:41
DX: B02.9 Zoster without complications (principal); K21.9 Gastro-esophageal reflux disease without esophagitis; K57.30 Diverticulosis of large intestine without perforation or abscess without bleeding; D72.829 Elevated white blood cell count, unspecified; R10.32 Left lower quadrant pain; R11.0 Nausea; R19.7 Diarrhea, unspecified; I73.00 Raynaud's syndrome without gangrene; I10 Essential (primary) hypertension; M06.9 Rheumatoid arthritis, unspecified; Z79.1 Long term (current) use of non-steroidal anti-inflammatories (NSAID); Z79.899 Other long term (current) drug therapy; Z79.891 Long term (current) use of opiate analgesic
CPT/HCPCS: 99284; 96374; 96375; 36415; 87086; 83690; 85025; 85610; 85730; 87088; 80053; 81001; 87186; 74177; J3010; J2270; J2405